=== PATIENT | female | born 1965 | race Two or more races ===

== ENCOUNTER 2024-06-13 10:08 | Inpatient (IN) | payer MEDICAID, OTHER ==
[~2024-06-13] VITALS: Ht 152.4 cm; Wt 75.0 kg
[2024-06-13 10:48] LABS: Basophils # (auto) 0 10 ^3/uL (0-0.2); Basophils % (auto) 0.4 % (0.0-2.0); Eosinophils # (auto) 0.1 10 ^3/uL (0-0.8); Lymphocytes # (auto) 1.9 10 ^3/uL (0.4-5.4); Monocytes # (auto) 0.6 10 ^3/uL (0-1.3); Neutrophils # (auto) 3.7 10 ^3/uL (1.6-8.6)
[2024-06-13 10:49] LABS: Eosinophils % (auto) 1.2 % (0.0-7.0); Hemoglobin 11.7 g/dL (12.2-16.2); Lymphocytes % (auto) 30.2 % (10.0-50.0); Mean Corpuscular Hemoglobin 34.7 pg (28.0-32.0); Mean Corpuscular Hgb Conc. 33.4 g/dL (32.0-36.0); Mean Corpuscular Volume 103.9 fL (80.0-100.0); Monocytes % (auto) 9.3 % (0.0-12.0); Neutrophils % (auto) 58.9 % (37.0-80.0); Platelet Count (auto) 165 10^3/uL (140-450); Red Blood Cells 3.37 10^6/uL (4.0-5.20); White Blood Cell 6.2 10^3/uL (4.4-10.8)
[2024-06-13] MEDS: ASPirin 325 MG TAB PO ONE (10:54)
[2024-06-13 11:00] LABS: Alanine Aminotransferase 22 U/L (7-40); Albumin 4.4 g/dL (3.2-4.8); Anion Gap 11 (5-15); BUN/Creatinine Ratio 6.5 (10.0-20.0); Calcium 10.1 mg/dL (8.7-10.4); Carbon Dioxide 30 mmol/L (20-31)
[2024-06-13 11:01] LABS: Bilirubin, Total 0.5 mg/dL (0.2-1.0); Total Protein 7.6 g/dL (5.7-8.2)
[2024-06-13 11:03] LABS: Alkaline Phosphatase 136 U/L (46-116); Blood Urea Nitrogen 51 mg/dL (9-23); Chloride 95 mmol/L (98-107); Glucose 112 mg/dL (74-106); Sodium 136 mmol/L (136-145)
[2024-06-13 11:04] LABS: Aspartate Aminotransferase 12 U/L (13-40)
--- NOTE | 2024-06-13 12:32 | DVH ---
CHEST RADIOGRAPH Indication: cp Technique: Single frontal view of the chest was obtained Comparison: None FINDINGS: Lines and Tubes: None Lungs: No focal consolidation. Pleura: No effusion. No pneumothorax. Cardiomediastinal contours: Unremarkable Bones: No acute osseous abnormality. IMPRESSION: 1. No acute cardiopulmonary disease.
--- NOTE | 2024-06-13 12:36 | ED.PDOC ---
HPI Comments 58y F who presents to the ED for chief complaint of chest pain. Pt states she has chest pain "all the time" but states her chest pain has exacerbated over the past 1 days. Pt states the pain is constant, L sided, pins and needles in sensation, non-radiating, with no associated exacerbating or relieving factors. Pt states she felt epigastric burning sensation after she felt chest pain. Pt otherwise denies any other symptoms at this time. Pt otherwise has temp of 98.3F with BP of 168/65 and noted 02 sat of 97% on room air. Pt otherwise denies any other symptoms at this time. 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 Family History Family History: Unknown Social History Smoker: Non-Smoker Alcohol: Denies ETOH Use Drugs: Denies Drug Use Lives In: Home Constitutional: denies: chills, diaphoresis, fatigue, fever, malaise, sweats, weakness, others EENTM: denies: blurred vision, double vision, ear bleeding, ear discharge, ear drainage, ear pain, ear ringing, eye pain, eye redness, hearing loss, mouth pain, mouth swelling, nasal discharge, nose bleeding, nose congestion, nose pain, photophobia, tearing, throat pain, throat swelling, voice changes, others Respiratory: denies: cough, hemoptysis, orthopnea, SOB at rest, shortness of breath, SOB with excertion, stridor, wheezing, others Cardiovascular: reports: chest pain; denies: dizzy spells, diaphoresis, Dyspnea on exertion, edema, irregular heart beat, left arm pain, lightheadedness, palpitations, PND, syncope, others Gastrointestinal: denies: abdomen distended, abdominal pain, blood streaked bowels, constipated, diarrhea, dysphagia, difficulty swallowing, hematemesis, melena, nausea, poor appetite, poor fluid intake, rectal bleeding, rectal pain, vomiting, others Genitourinary: denies: abnormal vagina bleeding, burning, dyspareunia, dysuria, flank pain, frequency, hematuria, incontinence, pain, , vagina discharge, urgency, others Neurological: denies: dizziness, fainting, headache, left sided numbness, left sided weakness, numbness, paresthesia, pre-existing deficit, right sided numbness, right sided weakness, seizure, speech problems, tingling, tremors, weakness, others Musculoskeletal: denies: back pain, gout, joint pain, joint swelling, muscle pain, muscle stiffness, neck pain, others Integumetry: denies: bruises, change in color, change in hair/nails, dryness, laceration, lesions, lumps, rash, wounds, others Allergic/Immunocompromised: denies: Difficulty Healing, Frequent Infections, Hives, Itching, others Hematologic/Lymphatic: denies: anemia, blood clots, easy bleeding, easy bruising, swollen glands, others Endocrine: denies: excessive hunger, excessive sweating, excessive thirst, excessive urination, flushing, intolerance to cold, intolerance to heat, unexplained weight gain, unexplained weight loss, others Psychiatric: denies: anxiety, bipolar disorder, depression, hopeless, panic disorder, schizophrenia, sleepless, suicidal, others All Other Systems: Reviewed and Negative Physical Exam General Appearance: No Apparent Distress, Normal HEENT: Normal ENT Inspection, Pharynx Normal, TMs Normal Neck: Full Range of Motion, Non-Tender, Normal, Normal Inspection Respiratory: Other (cough and congestion) Cardiovascular: No Edema, No JVD, No Murmur, No Gallop, Normal Peripheral Pulses, Regular Rate/Rhythm Breast Exam: Deferred Gastrointestinal: No Organomegaly, Non Tender, No Pulsatile Mass, Normal Bowel Sounds, Soft Genitalia: Deferred Pelvic: Deferred Rectal: Deferred Extremities: No calf tenderness, Normal capillary refill, Normal inspection, Normal range of motion, Non-tender, No pedal edema Musculoskeletal : Apperance: Normal Neurologic: Alert, big data engineer II-XII nml as Tested, No Motor Deficits, Normal Affect, Normal Mood, No Sensory Deficits Cerebellar Function: Normal Reflexes: Normal Skin: Dry, Normal Color, Warm Lymphatic: No Adenopathy Was a procedure done? Was a procedure done?: No CP Differential Dx Differential Diagnosis: A-fib, A-Flutter, Angina, Anxiety / Panic Attack, Electrolyte Disorder, Heart Failure, Pacemaker Malfunction, Pulmonary Embolus, Renal Failure Differential Diagnosis: HTN Essential, HTN Accelerated, HTN Encephalopathy, Medical NonCompliance Differential Diagnosis: Angina, Aortic dissection, Chest Wall Pain, Costochondritis, Myocardial Infarction, Pericarditis, Pneumonia, Pneumothorax, Pulmonary Embolus X-Ray, Labs, Meds, VS Vital Signs Date Time Temp Pulse Resp B/P (MAP) Pulse Ox O2 Delivery O2 Flow Rate FiO2 06/13/24 11:15 64 06/13/24 10:55 98.9 69 16 177/69 (105) 97 98.9 06/13/24 10:55 69 16 97 Room Air 06/13/24 10:30 98.3 72 20 168/65 (99) 97 06/13/24 10:13 75 Lab Test 06/13/24 12:00 06/13/24 10:26 Range/Units Troponin I High Sensitivity 48 *H 48 *H </=34 ng/L White Blood Count 6.2 4.4-10.8 10^3/uL Red Blood Count 3.37 L 4.0-5.20 10^6/uL Hemoglobin 11.7 L 12.2-16.2 g/dL Hematocrit 35.0 L 36.0-46.0 % Mean Corpuscular Volume 103.9 H 80.0-100.0 fL Mean Corpuscular Hemoglobin 34.7 H 28.0-32.0 pg Mean Corpuscular Hemoglobin Concent 33.4 32.0-36.0 g/dL Red Cell Distribution Width 18.0 H 11.8-14.3 % Platelet Count 165 140-450 10^3/uL Mean Platelet Volume 8.9 6.9-10.8 fL Neutrophils (%) (Auto) 58.9 37.0-80.0 % Lymphocytes (%) (Auto) 30.2 10.0-50.0 % Monocytes (%) (Auto) 9.3 0.0-12.0 % Eosinophils (%) (Auto) 1.2 0.0-7.0 % Basophils (%) (Auto) 0.4 0.0-2.0 % Neutrophils # (Auto) 3.7 1.6-8.6 10 ^3/uL Lymphocytes # (Auto) 1.9 0.4-5.4 10 ^3/uL Monocytes # (Auto) 0.6 0-1.3 10 ^3/uL Eosinophils # (Auto) 0.1 0-0.8 10 ^3/uL Basophils # (Auto) 0 0-0.2 10 ^3/uL Nucleated Red Blood Cells 0.0 % Sodium Level 136 136-145 mmol/L Potassium Level 4.0 3.5-5.1 mmol/L Chloride Level 95 L 98-107 mmol/L Carbon Dioxide Level 30 20-31 mmol/L Anion Gap 11 5-15 Blood Urea Nitrogen 51 H 9-23 mg/dL Creatinine 7.84 H 0.550-1.02 mg/dL Glomerular Filtration Rate Calc 6 >90 mL/min BUN/Creatinine Ratio 6.5 L 10.0-20.0 Serum Glucose 112 H 74-106 mg/dL Calcium Level 10.1 8.7-10.4 mg/dL Total Bilirubin 0.5 0.2-1.0 mg/dL Aspartate Amino Transferase (AST) 12 L 13-40 U/L Alanine Aminotransferase (ALT) 22 7-40 U/L Alkaline Phosphatase 136 H 46-116 U/L Total Protein 7.6 5.7-8.2 g/dL Albumin 4.4 3.2-4.8 g/dL Current Medications Medications (Trade) Dose Ordered Sig/Leandro Route Start Time Stop Time Status Last Admin Aspirin 325 mg ONCE ONCE PO 06/13/24 10:45 06/13/24 10:46 DC 06/13/24 10:54 Time of 1ST Reevaluation: 13:00 Reevaluation 1ST: Unchanged Time of 2ND Reevaluation: 13:13 Reevaluation 2ND: Unchanged Patient Education/Counseling: Diagnosis, Treatment, Prognosis, Need For Follow Up Family Education/Counseling: Diagnosis, Treatment, Prognosis, Need For Follow Up, No Family Present Additional Information - I reviewed the following notes from patient's past medical encounters: - The following tests were ordered, and results were reviewed by me: (Labs, X- Ray, EKG): CBC, CMP, troponin x3, EKG x3,chest x-ray - Additional information was gathered from interviewing the following independent Historian: (Family, Other Providers, EMT): none - I reviewed and agreed with the following test results read by other provider: (X-ray, CT, US): radiologist - I discussed treatments and results with medical personnel and: (consultants, family) pt and are poor historians, but her chest pain is different from her usual cp. her workup does not show AMI, but she has unstable angina and will be admitted Departure 1 Departure Time of Disposition: 13:13 Impression: Primary Impression: Stable angina Additional Impression: ESRD (end stage renal disease) Disposition: 09 ADMITTED INPATIENT Admit to: Tele Condition: Stable Discharged With: Spouse Critical Care Note Critical Care Time?: Yes (55 min-critical care time only) Critical care comment: due to concerns for patient's condition deterioration, the care required my highest attention and readiness to intervene. i spoke to the family, patient, reviewed any records, ordered the appropriate tests and treatments, reviewed the results, response and communicated with medical personnel, formulated a plan of care. critical care time does not include any procedures Stability Stability form required: No Heart Score Heart Score: Heart Score Response (Comments) Value History Highly Suspicious 2 EKG Repolarization Disturb 1 Age 45-64 1 Risk Factors 1 or 2 risk factors 1 Troponin 1-2 x's Normal limit 1 Total 6 I personally scribed for SURESH COOK MD ([email or web address]) on 06/13/24 at 12:36. Electronically submitted by Christine Sotelo ([email or web address]). SURESH COOK MD Jun 13, 2024 12:36
--- NOTE | 2024-06-13 14:28 | ECG ---
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
--- NOTE | 2024-06-13 14:29 | ECG ---
[facility] Test Date: 2024-06-13 Test Time: 11:15:43 Pat Name: ANALY FOY Department: er Room: Gender: F [employer] Support [employer] Director: cb : 1965 Requested By: SURESH COOK Order Number: [id number] Reading MD: Lawson Alejandra Measurements Intervals [place] Rate: 64 P: 60 CO: 171 QRS: -18 QRSD: 94 T: 35 QT: 424 QTc: 438 Interpretive Statements Sinus rhythm LVH by voltage Lateral infarct, age indeterminate Electronically Signed On 06-13-2024 15:45:25 PST by Lawson Alejandra Please click the below link to view image of tracing.
[2024-06-13] MEDS ORDERED: NITROGLYCERIN 0.4 MG SL TAB SL PRN ×2 (15:00)
[2024-06-13] MEDS ORDERED: MORPHINE SULFATE 4 MG/ML SYR/VIAL IV PRN (15:00)
[2024-06-13] MEDS ORDERED: MORPHINE SULFATE INJ 2 MG/ml SYRG IV PRN (15:00)
--- NOTE | 2024-06-13 15:14 | DVHHP2 ---
History of Present Illness Reason for Visit: Chest pain History of Present Illness Mounika Cano is a 58-year-old female with past medical history of hyperlipidemia, diabetes, and end-stage renal disease on dialysis Sunday and Fridays who presents to the ED today for chest pain x2 days. Patient reports that she is blind and she uses a cane for ambulation. Upon examination patient reports that she has epigastric pain that is now relieved af ter she was given some medications. Patient states that she had eaten chili which triggered the pain. Patient also reports that she is compliant with all her medications. Patient denies any nausea, vomiting, shortness breath, fever, diarrhea, chills, lightheadedness, and dizziness. Cardiovascular: hyperipidemia Renal/: Chronic renal failure Endocrine: Diabetes Past Surgical History: None Family History: None Smoke: No ALCOHOL: none Drugs: None Lives: with Family Domestic Violence: Neg Review of Systems Constitutional: No: Fever, Chills, Sweats, Weakness, Malaise, Other Eyes: No: Pain, Vision change, Conjunctivae inflammation, Eyelid inflammation, Other, Redness ENT: No: Ear pain, Ear discharge, Nose pain, Nose discharge, Nose congestion, Mouth pain, Mouth swelling, Throat pain, Throat swelling, Other Respiratory: No: Cough, Dry, Shortness of breath, SOB with excertion, Wheezing, Hemoptysis, Pleuritic Pain, Sputum, Wheezing, Other Cardiovascular: Chest Pain; No: Palpitations, Orthopnea, Paroxysmal Noc. Dyspnea, Edema, Lt Headedness, Other Gastrointestinal: Other (epigastric pain); No: Nausea, Vomiting, Abdominal Pain, Diarrhea, Constipation, Melena, Hematochezia Genitourinary: No Dysuria, No Frequency, No Incontinence, No Hematuria, No Retention, No Other Musculoskeletal: No: other, neck pain, shoulder pain, arm pain, back pain, hand pain, leg pain, foot pain Skin: No: Rash, Lesions, Jaundice, Bruising, Other Neurological: No: Weakness, Numbness, Incoordination, Change in speech, Confusion, Seizures, Other Allergies: Coded Allergies: NO KNOWN ALLERGIES (Unverified , 06/13/24) Exam Vital Signs Vital Signs Date Time Temp Pulse Resp B/P (MAP) Pulse Ox O2 Delivery O2 Flow Rate FiO2 06/13/24 11:15 64 06/13/24 10:55 98.9 16 177/69 (105) 97 98.9 06/13/24 10:55 Room Air General Appearance: Alert, Cooperative, No acute distress HEENT: Atraumatic, Mucous membr. moist/pink, Other (BLind) Respiratory: Clear to auscultation, Normal air movement Cardiovascular: Regular rate, Normal S1, Normal S2, No murmurs Abdominal: Normal bowel sounds, Soft, No tenderness, No hepatospenomegaly, No masses Extremities: No clubbing, No cyanosis, No edema, Normal pulses, No tenderness/swelling Skin: No rashes, No breakdown, No significant lesion Neuro: Normal speech, Normal tone, Sensation intact, Other (uses cane with ambulation) Psych/Mental Status: Mental status NL, Mood NL Labs/Xrays Labs Test 06/13/24 14:16 06/13/24 10:26 Range/Units White Blood Count 6.2 4.4-10.8 10^3/uL Red Blood Count 3.37 L 4.0-5.20 10^6/uL Hemoglobin 11.7 L 12.2-16.2 g/dL Hematocrit 35.0 L 36.0-46.0 % Mean Corpuscular Volume 103.9 H 80.0-100.0 fL Mean Corpuscular Hemoglobin 34.7 H 28.0-32.0 pg Mean Corpuscular Hemoglobin Concent 33.4 32.0-36.0 g/dL Red Cell Distribution Width 18.0 H 11.8-14.3 % Platelet Count 165 140-450 10^3/uL Mean Platelet Volume 8.9 6.9-10.8 fL Neutrophils (%) (Auto) 58.9 37.0-80.0 % Lymphocytes (%) (Auto) 30.2 10.0-50.0 % Monocytes (%) (Auto) 9.3 0.0-12.0 % Eosinophils (%) (Auto) 1.2 0.0-7.0 % Basophils (%) (Auto) 0.4 0.0-2.0 % Neutrophils # (Auto) 3.7 1.6-8.6 10 ^3/uL Lymphocytes # (Auto) 1.9 0.4-5.4 10 ^3/uL Monocytes # (Auto) 0.6 0-1.3 10 ^3/uL Eosinophils # (Auto) 0.1 0-0.8 10 ^3/uL Basophils # (Auto) 0 0-0.2 10 ^3/uL Nucleated Red Blood Cells 0.0 % Sodium Level 136 136-145 mmol/L Potassium Level 4.0 3.5-5.1 mmol/L Chloride Level 95 L 98-107 mmol/L Carbon Dioxide Level 30 20-31 mmol/L Anion Gap 11 5-15 Blood Urea Nitrogen 51 H 9-23 mg/dL Creatinine 7.84 H 0.550-1.02 mg/dL Glomerular Filtration Rate Calc 6 >90 mL/min BUN/Creatinine Ratio 6.5 L 10.0-20.0 Serum Glucose 112 H 74-106 mg/dL Calcium Level 10.1 8.7-10.4 mg/dL Total Bilirubin 0.5 0.2-1.0 mg/dL Aspartate Amino Transferase (AST) 12 L 13-40 U/L Alanine Aminotransferase (ALT) 22 7-40 U/L Alkaline Phosphatase 136 H 46-116 U/L Total Protein 7.6 5.7-8.2 g/dL Albumin 4.4 3.2-4.8 g/dL CHEST RADIOGRAPH Indication: cp Technique: Single frontal view of the chest was obtained Comparison: None FINDINGS: Lines and Tubes: None Lungs: No focal consolidation. Pleura: No effusion. No pneumothorax. Cardiomediastinal contours: Unremarkable Bones: No acute osseous abnormality. IMPRESSION: 1. No acute cardiopulmonary disease. Assessment/Plan Assessment/Plan Assessment/Plan: Atypical chest pain r/o ACS SRIDHAR on ESRD ekg noted cxr noted labs echo acs protocol asa statin - home meds ekg am labs am trend trop ua antihypertensives CT A/P - r/o shmuel/pancreatitis Heart Score 4 (mod) HLD continue home meds DM HgbA1c ISS and accuchecks ESRD - M/W/F Nephro cx Cr elevated FEN/PPX cardiac diet hl Patient ambulating no need for dvt ppx PUD ppx - protonix, continue home meds Home medications reconciled Discussed plan of care with patient and nurse Admit to tele Plan discussed with: Patient, Spouse My Orders Orders - TIBURCIO RODRIGUEZ Procedure Category Date Status Time *Dr. Ko Group CONS 06/13/24 Verified -[place] 15:00 Admit ADMIT 06/13/24 Verified 15:00 Code Status CODE 06/13/24 Verified 15:00 Vital Signs CHAGO 06/13/24 Verified 15:00 Coconut Candy Maker CHAGO 06/13/24 Verified 15:00 Cardiac DIET 06/13/24 Verified Diet-2gna,Lofat,Lochol Dinner Aspirin Tablet PHA 06/14/24 Verified 10:00 Morphine Sulfate PHA 06/13/24 Verified Injection 15:00 Acetaminophen Tablet PHA 06/13/24 Verified (Tylenol Tablet) 15:00 Complete Blood Count LAB 06/14/24 Verified 04:00 Comprehensive LAB 06/14/24 Verified Metabolic Panel 04:00 Nitroglycerin PHA 06/13/24 Verified Sublingual (Ntrostat 15:00 Electrocardigram EKG 06/14/24 Verified 04:00 Alum & Mag PHA 06/13/24 Verified Hydrox-Simethicone 15:00 Troponin-I Hs LAB 06/14/24 Verified 04:00 Nitroglycerin PHA 06/13/24 Verified Sublingual (Ntrostat 15:00 Date of Service: Jun 13, 2024 Billing Provider: TIBURCIO RODRIGUEZ Common Visit Codes: [id number] INP/OBS CARE (HIGH) TIBURCIO RODRIGUEZ Jun 13, 2024 15:13
[2024-06-13] MEDS ORDERED: DEXTROSE (50%) 50ML SYRG IV PRN (15:15)
[2024-06-13] MEDS ORDERED: B-CO-6 PO (15:25)
[2024-06-13] MEDS ORDERED: OMEP-337 (15:25)
[2024-06-13] MEDS ORDERED: ERGO1CAP12 PO (15:25)
[2024-06-13] MEDS ORDERED: ATOR20TA50 PO (15:25)
[2024-06-13] MEDS ORDERED: CARV12.544 PO (15:25)
[2024-06-13] MEDS ORDERED: FERR325T20 PO (15:25)
[2024-06-13] MEDS ORDERED: FURO40TA4 PO (15:25)
[2024-06-13] MEDS ORDERED: AMLO1TAB22 PO (15:25)
[2024-06-13] MEDS: InsuLIN REG 1unit/0.01ml Soln (100units/ml) SC SCH (16:00)
[2024-06-13] MEDS: ACCU-CHEK COMFORT CURVE STRIP VI SCH (16:12)
--- NOTE | 2024-06-13 16:12 | DVH ---
CT ABDOMEN AND PELVIS WITHOUT CONTRAST CLINICAL HISTORY: R/O shmuel TECHNIQUE: Multiple contiguous axial images of the abdomen and pelvis without intravenous contrast. The images were reformatted degenerate coronal and sagittal reconstructions. All CT scans at this medical facility are performed using dose modulation techniques as appropriate t o a performed exam including the following:Automated exposure control was utilized; adjustment of the MA and/or KV according to patient size; and use of iterative reconstruction technique. Radiation Dose Information: CT Dose: CTDI volume is 11.93 mGy. Dose-length product is 654.09 mGy*cm Comparison: None FINDINGS: Evaluation of the abdomen and pelvis is limited without intravenous contrast. There is likely a 2.3 cm hyperdense gallstone in the gallbladder neck region. The gallbladder does no t appear distended and there is no pericholecystic fluid or fat stranding. The liver, pancreas, kidneys, adrenal glands, and spleen appear within normal limits. There is no gross evidence of abdominal lymphadenopathy. There is no free fluid or free air. There is a small hiatal hernia. The small and large bowel loops demonstrate normal caliber. There i s a normal-appearing air-filled appendix in the right lower quadrant abdomen. The abdominal aorta and IVC appear within normal limits. The bladder appears unremarkable for the degree of distention. There are multiple bilateral periuteri ne calcified vessels.. There is small amount of free fluid in the cul-de-sac. There is a nonspecifi c 1.4 x 1.9 cm calcification in the left cul-de-sac adjacent to the rectum. This may represent a calc ified diverticulum. Lung bases are clear. There is no acute osseous abnormality. IMPRESSION: 1. Likely a 2.3 cm hyperdense gallstone in the gallbladder neck. The gallbladder does not appear dist ended and there is no pericholecystic fluid or fat stranding to suggest acute cholecystitis. Further evaluation with abdominal ultrasound is recommended. 2. Nonspecific 1.4 x 1.9 cm calcification in the left pelvic cul-de-sac adjacent to the rectum. This may represent a calcified diverticulum. 3. Small hiatal hernia. HS:Y
[2024-06-13] MEDS: MAALOX PLUS or MAALOX 30 ML PO ONE (16:19)
[2024-06-13 16:42] VITALS: PULSE 64; RESP 16; O2SAT 97
[2024-06-13] MEDS: hydrALAZINE HCL 20 MG/ML VL IV PRN (17:15)
[2024-06-13 18:20] VITALS: BP 182/65; PULSE 67; PULSE 69; RESP 18; TEMP 98.9; O2SAT 97
[2024-06-13 20:00] VITALS: PULSE 68; PULSE 69; RESP 18
[2024-06-13 21:00] VITALS: BP 149/65; PULSE 72; RESP 18; TEMP 98.6; O2SAT 96
[2024-06-14] VITALS (8 sets, daily range): BP systolic 133–164; BP diastolic 51–68; PULSE 63–97; RESP 17–18; TEMP 98.2–98.7; O2SAT 92–97
[2024-06-14] MEDS ORDERED: SODIUM CHL 0.9% 1000 ML BAG XX ONE (07:00)
[2024-06-14 07:05] LABS: Basophils # (auto) 0 10 ^3/uL (0-0.2); Eosinophils # (auto) 0.1 10 ^3/uL (0-0.8); Lymphocytes # (auto) 1.5 10 ^3/uL (0.4-5.4); Monocytes # (auto) 0.6 10 ^3/uL (0-1.3); Monocytes % (auto) 7.9 % (0.0-12.0)
[2024-06-14 07:07] LABS: Basophils % (auto) 0.4 % (0.0-2.0); Eosinophils % (auto) 1.1 % (0.0-7.0); Hematocrit 32.9 % (36.0-46.0); Hemoglobin 11.3 g/dL (12.2-16.2); Lymphocytes % (auto) 21.5 % (10.0-50.0); Mean Corpuscular Hemoglobin 35.3 pg (28.0-32.0); Mean Corpuscular Hgb Conc. 34.2 g/dL (32.0-36.0); Mean Corpuscular Volume 103.3 fL (80.0-100.0); Neutrophils # (auto) 4.9 10 ^3/uL (1.6-8.6); Neutrophils % (auto) 69.1 % (37.0-80.0); Platelet Count (auto) 157 10^3/uL (140-450); Red Blood Cells 3.19 10^6/uL (4.0-5.20); Red Cell Distribution Width 17.8 % (11.8-14.3)
[2024-06-14 07:11] LABS: Potassium 4.5 mmol/L (3.5-5.1)
[2024-06-14 07:27] LABS: Anion Gap 17 (5-15)
[2024-06-14 07:33] LABS: BUN/Creatinine Ratio 7.4 (10.0-20.0)
[2024-06-14 07:35] LABS: Bilirubin, Total 0.3 mg/dL (0.2-1.0); Total Protein 6.9 g/dL (5.7-8.2)
[2024-06-14 08:50] LABS: Alanine Aminotransferase 19 U/L (7-40); Albumin 4.1 g/dL (3.2-4.8); Alkaline Phosphatase 109 U/L (46-116); Aspartate Aminotransferase 8 U/L (13-40); Blood Urea Nitrogen 73 mg/dL (9-23); Calcium 9.7 mg/dL (8.7-10.4); Carbon Dioxide 24 mmol/L (20-31); Chloride 95 mmol/L (98-107); Glucose 138 mg/dL (74-106); Sodium 136 mmol/L (136-145)
[2024-06-14] MEDS: ASPirin 81 mg TAB PO SCH (09:58)
[2024-06-14] MEDS: ACETAMINOPHEN 325 MG TAB PO PRN (10:06)
--- NOTE | 2024-06-14 11:56 | DVHPN2 ---
Subjective 58-year-old female with a history of end-stage renal disease and diabetes and dyslipidemia came with chief complaint of chest pain Goes to dialysis on Sunday and Sunday Still complains of chest pain at this time Potassium is 4.5 Creatinine is 9.8 Troponin is 51 Changes from previous H/P or p: Changes Eyes: No Pain, No Vision change, No Conjunctivae inflammation, No Eyelid inflammation, No Other, No Redness ENT: No Ear pain, No Ear discharge, No Nose pain, No Nose discharge, No Nose congestion, No Mouth pain, No Mouth swelling, No Throat pain, No Throat swelling, No Other Cardiovascular: Chest Pain; No Palpitations, No Orthopnea, No Paroxysmal Noc. Dyspnea, No Edema, No Lt Headedness, No Other Respiratory: No Cough, No Dry, No Shortness of breath, No SOB with excertion, No Wheezing, No Hemoptysis, No Pleuritic Pain, No Sputum, No Other Gastrointestinal: No Nausea, No Vomiting, No Abdominal Pain, No Diarrhea, No Constipation, No Melena, No Hematochezia; Other (epigastric pain) Genitourinary: No Dysuria, No Frequency, No Incontinence, No Hematuria, No Retention, No Other Musculoskeletal: No other, No neck pain, No shoulder pain, No arm pain, No back pain, No hand pain, No leg pain, No foot pain Skin: No Rash, No Lesions, No Jaundice, No Bruising, No Other Objective Vitals Vital Signs Date Time Temp Pulse Resp B/P (MAP) Pulse Ox O2 Delivery O2 Flow Rate FiO2 06/14/24 09:00 98.6 71 18 146/51 (82) 95 98.6 06/14/24 08:00 Room Air* 0 21 Intake/Output Intake and Output 06/14/24 07:00 Intake Total 100 ml Balance 100 ml Intake Other 100 ml # Voids 1 General Appearance: Alert, Oriented X3, Cooperative, No acute distress Lungs: Clear to auscultation, Normal air movement Cardiovascular: Regular rate, Normal S1, Normal S2, No murmurs Abdomen: Normal bowel sounds, Soft, No tenderness Extremities: No edema Medications Current Medications Medications Dose Ordered Sig/Leandro Route Start Time Stop Time Status Last Admin Dose Admin Aspirin 81 mg DAILY PO 06/14/24 10:00 06/14/24 09:58 81 MG Morphine Sulfate 2 mg Q30MP PRN IV 06/13/24 15:00 Acetaminophen 650 mg Q6HP PRN PO 06/13/24 15:00 06/14/24 10:06 650 MG Nitroglycerin 0.4 mg Q5MINP PRN SL 06/13/24 15:00 Nitroglycerin 0.4 mg Q5MINP PRN SL 06/13/24 15:00 UNV Morphine Sulfate 2 mg Q30M PRN IV 06/13/24 15:00 Cancel Diagnostic Test (Pha) 1 strip IQ4HR 06/13/24 16:00 06/14/24 08:00 1 STRIP Insulin Human Regular IQ4HR SC 06/13/24 16:00 06/13/24 20:31 4 UNITS Dextrose 50 ml UD PRN IV 06/13/24 15:15 Hydralazine HCl 10 mg Q6HP PRN IV 06/13/24 15:30 06/14/24 06:13 10 MG Laboratory Results Laboratory Tests 06/14/24 06:29 Chemistry Test 06/14/24 06:29 Albumin 4.1 g/dL (3.2-4.8) Calcium Level 9.7 mg/dL (8.7-10.4) Total Protein 6.9 g/dL (5.7-8.2) LFT Test 06/14/24 06:29 Alanine Aminotransferase (ALT) 19 U/L (7-40) Alkaline Phosphatase 109 U/L (46-116) Aspartate Amino Transferase (AST) 8 U/L (13-40) L Total Bilirubin 0.3 mg/dL (0.2-1.0) Assessment/Plan Assessment/Plan Chest pain Elevated troponin NSTEMI End-stage renal disease Type 2 diabetes Dyslipidemia Anemia of chronic kidney disease Plan Cardiology consult Echocardiogram Nephrology consult for hemodialysis Aspirin 81 mg daily Coreg 12.5 mg twice a day Amlodipine 5 mg daily Oxygen as needed Hydralazine IV p.r.n. Full code Discussed with the at the bedside Advance directives discussed for 20 minutes Plan discussed with: Patient, Spouse My Orders Orders - KEVIN VIEYRA MD Procedure Category Date Status Time * Cardiology Consult CONS 06/14/24 Verified 11:48 Date of Service: Jun 14, 2024 Billing Provider: KEVIN VIEYRA MD Common Visit Codes: [id number] INP/OBS CARE(HIGH) Secondary Visit Codes: [id number] CARE PLAN 30 MINUTES KEVIN VIEYRA MD Jun 14, 2024 11:56
[2024-06-14] MEDS: CARVEDILOL 12.5 MG TAB PO ONE (12:00)
[2024-06-14] MEDS: InsuLIN REG 1unit/0.01ml Soln (100units/ml) SC SCH (12:00)
[2024-06-14] MEDS: ACCU-CHEK COMFORT CURVE STRIP VI SCH (12:00)
[2024-06-14] MEDS: amLODIPine BESYLATE 5 MG TAB PO ONE (12:00)
--- NOTE | 2024-06-14 14:26 | DVHSR ---
APPROVED REPORT EXAM: Two-dimensional and M-mode echocardiogram with Doppler and color Doppler. Blood Pressure: 164/68 mmHg INDICATION Chest Pain RISK FACTORS Height: 5'0", Weight: 162 DIMENSIONS LVDd4.5 (3.8-5.7cm)LA (2D)3.5 (1.9-4.0cm)Aortic Root2.8 (2.0-3.7cm) LVDs3.0 (2.5-4.0cm)LA (MM) (1.9-4.0cm)Aortic Cusp Exc1.6 (1.5-2.0cm) EF (%) 60.0 (55-70%)Rt. Atrium4.4 (1.9-4.0cm)Asc. Aorta cm IVSd1.1 (0.7-1.1cm)RV (D) (1.8-2.4cm) PWd1.2 (0.7-1.1cm) Mitral Valve MitralMitral Stenosis E wave1.33m/sMV Mean GR.mmHg A wave0.76m/sMV Peak GR.mmHg E/A ratio1.82D MVAcm2 DECEL [id number] 1/2 Timems Aortic Valve Aortic ValveAortic Stenosis V11.30m/Javier Mean GR.7mmHg V21.87m/Javier Peak GR.14mmHg LVOT Diameter1.6 (1.8-2.4cm)Doppler AVA1.40cm2 Pulmonic Valve V21.58m/s Tricuspid Valve TR Velocity3.45m/s [id number] Other Information Technically limited study due to body habitus. Conclusion Sinus rhythm. Biatrial enlargement. Mild concentric LVH. Valves appear to be structurally normal. EF of 55% with normal RV function. Mild MR. Moderate TR. No pericardial effusion masses or vegetations.
--- NOTE | 2024-06-14 20:35 | DVHINCON2 ---
Date of service: Jun 14, [address] Johnson Reason for Consultation ESRD History of Present Illness Mrs. Cano is a 58-year-old female with known history of ESRD on maintenance hemodialysis who presented for further evaluation and management of chest pain. Current consultation requested for ongoing management of dialysis as inpatient. She was seen in her room this afternoon she is awake alert conversant. She denies current chest pain, dyspnea, fever. Past Medical History ESRD Hypertension Blindness Anemia Allergies: Coded Allergies: NO KNOWN ALLERGIES (Unverified , 06/13/24) Home Meds Reported Medications Ferrous Sulfate (Ferosul) 325 Mg Tab, PO 06/13/24 Amlodipine Besylate (Amlodipine Besylate) 5 Mg Tab, 1 TAB PO DAILY 06/13/24 Atorvastatin Calcium (ATORVASTATIN CALCIUM) 20 Mg Tab, 1 TAB PO DAILY 06/13/24 Furosemide (Furosemide) 40 Mg Tab, 1 TAB PO DAILY 06/13/24 Carvedilol (Carvedilol) 12.5 Mg Tab, 1 TAB PO BID 06/13/24 Omeprazole (Eq Omeprazole) 20 Mg Tab 06/13/24 B-Complex W/ C & Folic Acid (Michelle-[facility]ala Rx) Tab, 1 TAB PO DAILY 06/13/24 Ergocalciferol (Vitamin D) 50,000 Unit Cap, 1 CAP PO QWEEKLY 06/13/24 Current Medications Current Medications Medications (Trade) Dose Ordered Sig/Leandro Route PRN Reason Start Time Stop Time Status Last Admin Aspirin 81 mg DAILY PO 06/14/24 10:00 06/14/24 09:58 Diagnostic Test (Pha) (Accu-Chek Comfort Curve T) 1 strip ACHS 06/14/24 12:00 Insulin Human Regular (InsuLIN R) ACHS SC 06/14/24 12:00 Carvedilol (Coreg Tablet) 12.5 mg Q12HR PO 06/14/24 22:00 Amlodipine Besylate (Norvasc Tablet) 5 mg DAILY PO 06/15/24 10:00 Atorvastatin Calcium (Lipitor) 20 mg HS PO 06/14/24 22:00 Family History: Cardiovascular disease G8 FATHER, Onset: - 40 Diabetes mellitus G8 MOTHER, Onset:30 - 40 Review of Systems limited due to language barrier and is as per history of present illness. H&P Exam Vital Signs/I&O Vital Sign Date Time Temp Pulse Resp B/P (MAP) Pulse Ox O2 Delivery O2 Flow Rate FiO2 06/14/24 17:00 98.6 63 18 133/56 (81) 97 98.6 06/14/24 08:00 Room Air* 0 21 Intake and Output 06/13/24 06/14/24 19:00 07:00 Intake Total 100 ml Balance 100 ml Other 100 ml # Voids 1 Physical Exam gen: nad heent: nc lungs cta cvs: no rub abd: soft ext: no edema skin: no rash neuro: blind Labs/Diagnostic Data Labs/Diagnostic Data Laboratory Tests Test 06/14/24 12:26 06/14/24 08:29 06/14/24 06:29 06/14/24 04:23 Range/Units POC Glucose 169 H 138 H 147 H 70-106 mg/dl White Blood Count 7.0 4.4-10.8 10^3/uL Red Blood Count 3.19 L 4.0-5.20 10^6/uL Hemoglobin 11.3 L 12.2-16.2 g/dL Hematocrit 32.9 L 36.0-46.0 % Mean Corpuscular Volume 103.3 H 80.0-100.0 fL Mean Corpuscular Hemoglobin 35.3 H 28.0-32.0 pg Mean Corpuscular Hemoglobin Concent 34.2 32.0-36.0 g/dL Red Cell Distribution Width 17.8 H 11.8-14.3 % Platelet Count 157 140-450 10^3/uL Mean Platelet Volume 9.5 6.9-10.8 fL Neutrophils (%) (Auto) 69.1 37.0-80.0 % Lymphocytes (%) (Auto) 21.5 10.0-50.0 % Monocytes (%) (Auto) 7.9 0.0-12.0 % Eosinophils (%) (Auto) 1.1 0.0-7.0 % Basophils (%) (Auto) 0.4 0.0-2.0 % Neutrophils # (Auto) 4.9 1.6-8.6 10 ^3/uL Lymphocytes # (Auto) 1.5 0.4-5.4 10 ^3/uL Monocytes # (Auto) 0.6 0-1.3 10 ^3/uL Eosinophils # (Auto) 0.1 0-0.8 10 ^3/uL Basophils # (Auto) 0 0-0.2 10 ^3/uL Nucleated Red Blood Cells 0.0 % Sodium Level 136 136-145 mmol/L Potassium Level 4.5 3.5-5.1 mmol/L Chloride Level 95 L 98-107 mmol/L Carbon Dioxide Level 24 20-31 mmol/L Anion Gap 17 H 5-15 Blood Urea Nitrogen 73 #H 9-23 mg/dL Creatinine 9.85 H 0.550-1.02 mg/dL Glomerular Filtration Rate Calc 4 >90 mL/min BUN/Creatinine Ratio 7.4 L 10.0-20.0 Serum Glucose 138 H 74-106 mg/dL Calcium Level 9.7 8.7-10.4 mg/dL Total Bilirubin 0.3 0.2-1.0 mg/dL Aspartate Amino Transferase (AST) 8 L 13-40 U/L Alanine Aminotransferase (ALT) 19 7-40 U/L Alkaline Phosphatase 109 46-116 U/L Troponin I High Sensitivity 51 *H </=34 ng/L Total Protein 6.9 5.7-8.2 g/dL Albumin 4.1 3.2-4.8 g/dL Test 06/13/24 23:50 06/13/24 20:17 06/13/24 16:12 06/13/24 14:16 Range/Units POC Glucose 187 H 236 H 130 H 70-106 mg/dl Troponin I High Sensitivity 48 *H </=34 ng/L Test 06/13/24 12:00 06/13/24 10:26 Range/Units Troponin I High Sensitivity 48 *H 48 *H </=34 ng/L White Blood Count 6.2 4.4-10.8 10^3/uL Red Blood Count 3.37 L 4.0-5.20 10^6/uL Hemoglobin 11.7 L 12.2-16.2 g/dL Hematocrit 35.0 L 36.0-46.0 % Mean Corpuscular Volume 103.9 H 80.0-100.0 fL Mean Corpuscular Hemoglobin 34.7 H 28.0-32.0 pg Mean Corpuscular Hemoglobin Concent 33.4 32.0-36.0 g/dL Red Cell Distribution Width 18.0 H 11.8-14.3 % Platelet Count 165 140-450 10^3/uL Mean Platelet Volume 8.9 6.9-10.8 fL Neutrophils (%) (Auto) 58.9 37.0-80.0 % Lymphocytes (%) (Auto) 30.2 10.0-50.0 % Monocytes (%) (Auto) 9.3 0.0-12.0 % Eosinophils (%) (Auto) 1.2 0.0-7.0 % Basophils (%) (Auto) 0.4 0.0-2.0 % Neutrophils # (Auto) 3.7 1.6-8.6 10 ^3/uL Lymphocytes # (Auto) 1.9 0.4-5.4 10 ^3/uL Monocytes # (Auto) 0.6 0-1.3 10 ^3/uL Eosinophils # (Auto) 0.1 0-0.8 10 ^3/uL Basophils # (Auto) 0 0-0.2 10 ^3/uL Nucleated Red Blood Cells 0.0 % Sodium Level 136 136-145 mmol/L Potassium Level 4.0 3.5-5.1 mmol/L Chloride Level 95 L 98-107 mmol/L Carbon Dioxide Level 30 20-31 mmol/L Anion Gap 11 5-15 Blood Urea Nitrogen 51 H 9-23 mg/dL Creatinine 7.84 H 0.550-1.02 mg/dL Glomerular Filtration Rate Calc 6 >90 mL/min BUN/Creatinine Ratio 6.5 L 10.0-20.0 Serum Glucose 112 H 74-106 mg/dL Hemoglobin A1c 7.4 H <5.7 % A1C Calcium Level 10.1 8.7-10.4 mg/dL Total Bilirubin 0.5 0.2-1.0 mg/dL Aspartate Amino Transferase (AST) 12 L 13-40 U/L Alanine Aminotransferase (ALT) 22 7-40 U/L Alkaline Phosphatase 136 H 46-116 U/L Total Protein 7.6 5.7-8.2 g/dL Albumin 4.4 3.2-4.8 g/dL Assessment IMP: 1) ESRD on dialysis 2) Chest pain 3) Anemia 4) Hypertension REC: HD 06/15, UF as hemodynamics permit ZULEIKA with HD Plan discussed with: Patient ELINA CORDOVA MD Jun 14, 2024 20:35
[2024-06-14] MEDS: ATORVASTATIN 20 MG TAB PO SCH (21:05)
[2024-06-14] MEDS: CARVEDILOL 12.5 MG TAB PO SCH (21:06)
[2024-06-15] VITALS (8 sets, daily range): BP systolic 126–154; BP diastolic 53–69; PULSE 64–97; RESP 17–18; TEMP 98.2–98.7; O2SAT 93–98
[2024-06-15] MEDS: amLODIPine BESYLATE 5 MG TAB PO SCH (10:00)
[2024-06-15 11:18] LABS: Potassium 4.7 mmol/L (3.5-5.1)
[2024-06-15 11:19] LABS: Anion Gap 17 (5-15); Calcium 9.2 mg/dL (8.7-10.4); Carbon Dioxide 23 mmol/L (20-31); Chloride 94 mmol/L (98-107); Sodium 134 mmol/L (136-145)
[2024-06-15 11:24] LABS: BUN/Creatinine Ratio 7.9 (10.0-20.0); Magnesium 2.4 mg/dL (1.6-2.6); Triglycerides 109 mg/dL (< 150)
[2024-06-15 11:25] LABS: LDL Cholesterol 66 mg/dL (< 100)
[2024-06-15 11:26] LABS: Cholesterol 127 mg/dL (< 200)
[2024-06-15 11:29] LABS: Glucose 169 mg/dL (74-106); HDL Cholesterol 38 mg/dL (40-59)
[2024-06-15 11:32] LABS: Blood Urea Nitrogen 98 mg/dL (9-23)
--- NOTE | 2024-06-15 16:24 | DVHDS2 ---
Discharge Summary Date of Admission Jun 13, 2024 at 15:00 Date of Discharge: Jun 15, 2024 Labs/Diagnostic Data: Laboratory Results Test 06/15/24 09:30 06/15/24 06:06 06/14/24 06:29 06/13/24 10:26 Sodium Level 134 mmol/L (136-145) Potassium Level 4.7 mmol/L (3.5-5.1) Chloride Level 94 mmol/L (98-107) Carbon Dioxide Level 23 mmol/L (20-31) Anion Gap 17 (5-15) Blood Urea Nitrogen 98 mg/dL (9-23) Creatinine 12.35 mg/dL (0.550-1.02) Glomerular Filtration Rate Calc 3 mL/min (>90) BUN/Creatinine Ratio 7.9 (10.0-20.0) Serum Glucose 169 mg/dL (74-106) Calcium Level 9.2 mg/dL (8.7-10.4) Magnesium Level 2.4 mg/dL (1.6-2.6) Triglycerides Level 109 mg/dL (< 150) Cholesterol Level 127 mg/dL (< 200) LDL Cholesterol 66 mg/dL (< 100) HDL Cholesterol 38 mg/dL (40-59) Thyroid Stimulating Hormone (TSH) 1.50 uIU/mL (0.55-4.78) POC Glucose 174 mg/dl (70-106) White Blood Count 7.0 10^3/uL (4.4-10.8) Red Blood Count 3.19 10^6/uL (4.0-5.20) Hemoglobin 11.3 g/dL (12.2-16.2) Hematocrit 32.9 % (36.0-46.0) Mean Corpuscular Volume 103.3 fL (80.0-100.0) Mean Corpuscular Hemoglobin 35.3 pg (28.0-32.0) Mean Corpuscular Hemoglobin Concent 34.2 g/dL (32.0-36.0) Red Cell Distribution Width 17.8 % (11.8-14.3) Platelet Count 157 10^3/uL (140-450) Mean Platelet Volume 9.5 fL (6.9-10.8) Neutrophils (%) (Auto) 69.1 % (37.0-80.0) Lymphocytes (%) (Auto) 21.5 % (10.0-50.0) Monocytes (%) (Auto) 7.9 % (0.0-12.0) Eosinophils (%) (Auto) 1.1 % (0.0-7.0) Basophils (%) (Auto) 0.4 % (0.0-2.0) Neutrophils # (Auto) 4.9 10 ^3/uL (1.6-8.6) Lymphocytes # (Auto) 1.5 10 ^3/uL (0.4-5.4) Monocytes # (Auto) 0.6 10 ^3/uL (0-1.3) Eosinophils # (Auto) 0.1 10 ^3/uL (0-0.8) Basophils # (Auto) 0 10 ^3/uL (0-0.2) Nucleated Red Blood Cells 0.0 % Total Bilirubin 0.3 mg/dL (0.2-1.0) Aspartate Amino Transferase (AST) 8 U/L (13-40) Alanine Aminotransferase (ALT) 19 U/L (7-40) Alkaline Phosphatase 109 U/L (46-116) Troponin I High Sensitivity 51 ng/L (</=34) Total Protein 6.9 g/dL (5.7-8.2) Albumin 4.1 g/dL (3.2-4.8) Hemoglobin A1c 7.4 % A1C (<5.7) Other Laboratory Tests 06/15/24 09:30 06/14/24 06:29 Brief Hx & Hospital Course: Final diagnoses: Chest pain most likely due hypertensive urgency Hypertensive urgency Fluid overload due to end-stage renal disease Elevated troponin, type 2 NSTEMI, type 2 due to the above hypertensive urgency End-stage renal disease Type 2 diabetes Dyslipidemia Anemia of chronic kidney disease 58-year-old female who was admitted to the hospital for chest pain Troponins were slightly elevated indicating NSTEMI however it was most likely type 2 due to the hypertensive emergency Cardiology did an echocardiogram which showed an ejection fraction of 55% with mild LVH Overall the patient did well She was dialyzed today Her potassium today was 4.7 Blood pressure is stable at 130/59 The patient is stable for discharge Continue hemodialysis as scheduled as an outpatient Condition at Discharge: Stable Final Diagnosis/Problems List Chest pain most likely due hypertensive urgency Hypertensive urgency Fluid overload due to end-stage renal disease Elevated troponin, type 2 NSTEMI, type 2 due to the above hypertensive urgency End-stage renal disease Type 2 diabetes Dyslipidemia Anemia of chronic kidney disease Discharge Disposition: Home SNF Discharge Will this Physician continue t: No Discharge Statement: "Patient was advised to return to the ER or call 911 if any headaches, dizziness, shortness of breath, chest pain, abdominal pain, bleeding, fevers, or worsening of medical condition. Patient was counseled about treatment plan, medications, possible side effects, patientverbalized understanding. All questions were answered to the best of my ability. This discharge took greater then 30 minutes in planning, reviewing documentation, counseling the patient, and discussing with other team members." ASSESSMENT ASSESSMENT Assessment Date of Service: Jun 15, 2024 Billing Provider: KEVIN VIEYRA MD Common Visit Codes: 60306-VQS/OBS DISCH DAY >30min KEVIN VIEYRA MD Jun 15, 2024 16:24
--- NOTE | 2024-06-15 17:23 | DVHPN2 ---
Progress Note - Dictate Date Seen: Jun 15, 2024 Medical Necessity Reason Pt with a Central, PICC or Fol: No Subjective Patient seen on dialysis earlier today. Patient's is at the bedside. vital signs Vital Sign Date Time Temp Pulse Resp B/P (MAP) Pulse Ox O2 Delivery O2 Flow Rate FiO2 06/15/24 08:30 98.6 69 17 130/59 (82) 96 98.6 06/15/24 08:00 Room Air* 0 21 Total Intake and Output 06/14/24 06/14/24 06/15/24 14:59 22:59 06:59 Intake Total 500 ml 100 ml Balance 500 ml 100 ml medications Current Medications Medications Dose Ordered Sig/Leandro Route Start Time Stop Time Status Last Admin Dose Admin Aspirin 81 mg DAILY PO 06/14/24 10:00 06/15/24 10:00 81 MG Morphine Sulfate 2 mg Q30MP PRN IV 06/13/24 15:00 Acetaminophen 650 mg Q6HP PRN PO 06/13/24 15:00 06/14/24 10:06 650 MG Nitroglycerin 0.4 mg Q5MINP PRN SL 06/13/24 15:00 Nitroglycerin 0.4 mg Q5MINP PRN SL 06/13/24 15:00 UNV Morphine Sulfate 2 mg Q30M PRN IV 06/13/24 15:00 Cancel Dextrose 50 ml UD PRN IV 06/13/24 15:15 Hydralazine HCl 10 mg Q6HP PRN IV 06/13/24 15:30 06/14/24 06:13 10 MG Diagnostic Test (Pha) 1 strip ACHS 06/14/24 12:00 06/15/24 11:30 1 STRIP Insulin Human Regular ACHS SC 06/14/24 12:00 Carvedilol 12.5 mg Q12HR PO 06/14/24 22:00 06/14/24 21:06 12.5 MG Amlodipine Besylate 5 mg DAILY PO 06/15/24 10:00 Atorvastatin Calcium 20 mg HS PO 06/14/24 22:00 06/14/24 21:05 20 MG objective gen: nad lungs: cta cvs: no rub ext: trace edema laboratory and microbiology Laboratory Tests 06/15/24 09:30 06/14/24 06:29 Test 06/15/24 09:30 Range/Units Serum Glucose 169 H 74-106 mg/dL Assessment/Plan IMP: 1) ESRD on dialysis 2) Chest pain 3) Anemia 4) Hypertension REC: - UF as tolerated today - Patient's reports that Mrs. Cano receives dialysis at [facility]. - Will change consult to Dr. Calvo to assume care. Plan discussed with: Other ELINA CORDOVA MD Jun 15, 2024 17:23
[2024-06-16 10:15] LABS: Hepatitis A Ab IgM Negative; Hepatitis B Core IgM Negative (Negative); Hepatitis B Surface Antigen Negative (Negative); Hepatitis C Antibody Negative (Negative)
== END 2024-06-15 20:25 | disposition home or self-care (01) | DRG 199 ==
LOC: ER 10:08 → TELE 15:00 → TELE-WESTW 17:55
PROVIDERS: ADMIT Internal Medicine Geriatric Medicine; ATTEND Internal Medicine Geriatric Medicine
PROC: 5A1D70Z Performance of Urinary Filtration, Intermittent, Less than 6 Hours Per Day (ICD-10-PCS; principal; 2024-06-15)
DX: I16.1 Hypertensive emergency (principal); I21.A1 Myocardial infarction type 2; D63.1 Anemia in chronic kidney disease; N18.6 End stage renal disease; I12.0 Hypertensive chronic kidney disease with stage 5 chronic kidney disease or end stage renal disease; E11.22 Type 2 diabetes mellitus with diabetic chronic kidney disease; E87.70 Fluid overload, unspecified; E78.5 Hyperlipidemia, unspecified; Z83.3 Family history of diabetes mellitus; Z82.49 Family history of ischemic heart disease and other diseases of the circulatory system; Z99.2 Dependence on renal dialysis
CPT/HCPCS: 36415; 71045; 74176; 80048; 80053; 80061; 80074; 82962; 83036; 83735; 84443; 84484; 85025; 90935; 93005; 93306; 99291; G0378; J1642; J1815